=== PATIENT | male | born 1970 | race Two or more races ===

== ENCOUNTER 2016-12-16 12:56 | Outpatient (CLI) | payer MEDICAID | END 2016-12-16 12:57 | disposition home or self-care (01) | DX: I10 Essential (primary) hypertension (principal); E11.8 Type 2 diabetes mellitus with unspecified complications; E78.5 Hyperlipidemia, unspecified ==

== ENCOUNTER 2017-08-22 08:00 | Outpatient (CLI) | payer MEDICAID ==
[2017-08-22 19:35] LABS: CALCIUM 9.3 mg/dL (8.5-10.3); CREATININE 0.8 mg/dL (0.6-1.2); POTASSIUM 3.8 mmol/L (3.5-5.0)
[2017-08-22 20:05] LABS: HEMOGLOBIN A1C 0.58 g/dL
== END 2017-08-22 08:01 | disposition home or self-care (01) ==
LOC: LAB.N 08:00
PROVIDERS: ATTEND Family Medicine
DX: I10 Essential (primary) hypertension (principal); E11.9 Type 2 diabetes mellitus without complications
CPT/HCPCS: 36415; 80048; 83036

== ENCOUNTER 2019-03-24 08:00 | Outpatient (CLI) | payer MEDICAID, OTHER ==
[2019-03-24 12:55] LABS: BASOPHILS % (AUTO) 0.9 %; EOSINOPHILS % (AUTO) 3.1 %; HGB - HEMOGLOBIN 14.7 g/dL (14.0-18.0); LYMPHOCYTES % (AUTO) 41.7 %; MEAN CORPUSCULAR HEMOGLOBIN 30.7 pg (27.0-31.0); MEAN CORPUSCULAR HGB CONC 33.7 g/dL (32.0-36.0); MEAN CORPUSCULAR VOLUME 91.1 fL (80.0-94.0); MEAN PLATELET VOLUME 8.8 fL (7.4-11.4); MONOCYTES % (AUTO) 7.1 %; NEUTROPHILS % (AUTO) 47.2 %; PLT - PLATELET COUNT 263 10^3/uL (130-450); RED BLOOD COUNT 4.78 10^6/uL (4.70-6.10); RED CELL DISTRIBUTION WIDTH 13.8 % (12.0-15.0); WHITE BLOOD COUNT 4.3 x10^3/uL (4.8-10.8)
[2019-03-24 12:56] LABS: ABNORMAL LYMPHS % (MANUAL) 0 %
[2019-03-24 13:13] LABS: BUN - BLOOD UREA NITROGEN 18 mg/dL (6-20); CALCIUM 9.2 mg/dL (8.5-10.3); CARBON DIOXIDE - CO2 29 mmol/L (21-32); CHLORIDE 102 mmol/L (101-111); CHOL/HDL RATIO 4.3 (<5.0); CHOLESTEROL 184 mg/dL; CREATININE 0.8 mg/dL (0.6-1.2); GFR - MDRD 102 (>89); GLUCOSE 149 mg/dL (70-100); HDL CHOLESTEROL 43 mg/dL; LDL CHOLESTEROL,CALCULATED 124 mg/dL; LDL/HDL RATIO 2.9 (<3.6); SODIUM 138 mmol/L (135-145); VLDL CHOLESTEROL 17 mg/dL
[2019-03-24 14:47] LABS: BAND NEUTROPHILS % (MANUAL) 3 %; BASOPHILS % (MANUAL) 1 %; EOSINOPHILS # (MANUAL) 0.2 10^3/uL (0-0.7); LYMPHOCYTES # (MANUAL) 1.6 10^3/uL (1.5-3.5); LYMPHOCYTES % (MANUAL) 11 %; MONOCYTES # (MANUAL) 0.1 10^3/uL (0.0-1.0); NEUTROPHILS # (MANUAL) 2.3 10^3/uL (1.5-6.6); NEUTROPHILS % (MANUAL) 50 %
[2019-03-24 14:48] LABS: DIFFERENTIAL COMMENT MANUAL DIFFERENTIAL
[2019-03-24 15:49] LABS: HB2 TOTAL 15.5 g/dL; HEMOGLOBIN A1C 0.66 g/dL
== END 2019-03-24 23:59 | disposition home or self-care (01) ==
LOC: LAB.N 08:00
PROVIDERS: ATTEND Physician Assistant Medical
DX: E78.5 Hyperlipidemia, unspecified (principal); I10 Essential (primary) hypertension; E11.9 Type 2 diabetes mellitus without complications
CPT/HCPCS: 36415; 80048; 80061; 83036; 83721; 84443; 85025

== ENCOUNTER 2019-04-02 17:50 | Emergency (ER) | payer OTHER ==
[2019-04-02 17:56] VITALS: BP 140/85
[2019-04-02] MEDS ORDERED: TETANUS/DIPHTHERIA/PERTUSSIS 0.5 ML SYRINGE IM ONE (18:07)
[2019-04-02] MEDS ORDERED: BUFFERED LIDOCAINE 10 ML SYRINGE SUBQ STA (18:07)
--- NOTE | 2019-04-02 18:08 | ED Physician Documentation ---
PD HPI UPPER EXT INJURY - Stated complaint Stated Complaint: LT THUMB LAC - Chief complaint Chief Complaint: Laceration - History obtained from History obtained from: Patient - History of Present Illness Location: Left (Left-handed gentleman with unknown tetanus status cut his left thumb at work with a knife accidentally just before noon today.) Review of Systems Constitutional: reports: Reviewed and negative Throat: reports: Reviewed and negative Cardiac: reports: Reviewed and negative PD PAST MEDICAL HISTORY - Allergies Allergies/Adverse Reactions: Allergies Allergy/AdvReac Type Severity Reaction Status Date / Time No Known Drug Allergies Allergy Verified 04/02/19 17:56 PD ED PE NORMAL - Vitals Vital signs reviewed: Yes - General General: Alert and oriented X 3, No acute distress - Extremities Extremities: Other (The left thumb, ulnar side there is a 1 cm laceration at the level of the proximal nailbed but not into the nailbed. Normal neurovascular function distal.) - Neuro Neuro: Alert and oriented X 3, Normal speech Results - Vitals Vitals: Vital Signs - 24 hr 04/02/19 17:53 Temperature 37 C Heart Rate 76 Respiratory 17 Rate Blood Pressure 140/85 H O2 Saturation 97 Oxygen O2 Source Room air Procedures - Laceration (location) L thumb Length in cm: 1 Wound type: Linear Neurovascular status: Sensory intact, Motor intact, Vascular intact Anesthesia: Lidocaine 1%, With bicarb Wound Preparation: Irrigated copiously NS Skin layer closure: Nylon, Interrupted, Size #-0 - enter number (4-0), Sutures - enter # (3) Other: Patient tolerated well, No complications, Neurovascular intact, Tetanus booster given Complexity: Simple Departure - Departure Disposition: 01 Home, Self Care Clinical Impression: Laceration Condition: Good Record reviewed to determine appropriate education?: Yes Instructions: ED Laceration Hand Comments: Come back for any signs of infection which would include: Redness, swelling, drainage, increased pain, or fevers. You can wash it soap and water. Keep it covered and moist with bacitracin ointment which is available over the counter; avoid neosporin. Follow-up with your physician in about 14 days for suture removal. Your blood pressure was elevated today on check into the emergency department. This does not mean that you have hypertension, it is a common phenomenon to come to the emergency department and have elevated blood pressure. I recommend that you see your primary care physician within the week to have it rechecked when you are feeling better.
== END 2019-04-02 18:34 | disposition home or self-care (01) ==
LOC: ED 17:50
DX: S61.012A Laceration without foreign body of left thumb without damage to nail, initial encounter (principal); W26.0XXA Contact with knife, initial encounter; Y99.0 Civilian activity done for income or pay; Z23 Encounter for immunization; R03.0 Elevated blood-pressure reading, without diagnosis of hypertension
CPT/HCPCS: 1040M; 12001; 90471; 90715; 99282

== ENCOUNTER 2020-08-12 09:49 | Outpatient (CLI) | payer SELFPAY ==
[2020-08-12 10:29] LABS: ALBUMIN 4.6 g/dL (3.2-5.5); ALBUMIN/GLOBULIN RATIO 1.4 (1.0-2.2); ALKALINE PHOSPHATASE 59 IU/L (42-121); ALT ALANINE AMINOTRANSFERASE 70 IU/L (10-60); AST ASPARTATE AMINOTRANSFERASE 38 IU/L (10-42); BILIRUBIN,TOTAL 1.2 mg/dL (0.2-1.0); BUN - BLOOD UREA NITROGEN 16 mg/dL (6-20); CALCIUM 9.8 mg/dL (8.5-10.3); CARBON DIOXIDE - CO2 26 mmol/L (21-32); CHLORIDE 98 mmol/L (101-111); CHOL/HDL RATIO 4.8 (<5.0); CHOLESTEROL 223 mg/dL; CREATININE 0.9 mg/dL (0.6-1.2); GLUCOSE 170 mg/dL (70-100); HDL CHOLESTEROL 46 mg/dL; LDL CHOLESTEROL,CALCULATED 152 mg/dL; LDL/HDL RATIO 3.3 (<3.6); SODIUM 138 mmol/L (135-145); VLDL CHOLESTEROL 25 mg/dL
[2020-08-13 09:14] LABS: HEMOGLOBIN A1c% 7.3 % (4.27-6.07)
== END 2020-08-12 09:50 | disposition home or self-care (01) ==
LOC: LAB 09:49
PROVIDERS: ATTEND Physician Assistant Medical
DX: E11.9 Type 2 diabetes mellitus without complications (principal)
CPT/HCPCS: 36415; 80053; 80061; 83036; 83721

== ENCOUNTER 2020-11-06 08:00 | Outpatient (CLI) | payer SELFPAY ==
[2020-11-06 13:27] LABS: CALCIUM 9.6 mg/dL (8.5-10.3); CREATININE 0.9 mg/dL (0.6-1.2)
[2020-11-06 14:53] LABS: HEMOGLOBIN A1c% 5.8 % (4.27-6.07)
== END 2020-11-06 23:59 | disposition home or self-care (01) ==
LOC: LAB.N 08:00
PROVIDERS: ATTEND Physician Assistant Medical
DX: E11.9 Type 2 diabetes mellitus without complications (principal)
CPT/HCPCS: 36415; 80048; 83036

== ENCOUNTER 2021-10-02 08:29 | Outpatient (CLI) | payer OTHER ==
[2021-10-02 12:30] LABS: ALBUMIN 4.7 g/dL (3.2-5.5); ALBUMIN/GLOBULIN RATIO 1.6 (1.0-2.2); ALKALINE PHOSPHATASE 64 IU/L (42-121); ALT ALANINE AMINOTRANSFERASE 43 IU/L (10-60); AST ASPARTATE AMINOTRANSFERASE 24 IU/L (10-42); BILIRUBIN,TOTAL 1.1 mg/dL (0.2-1.0); BUN - BLOOD UREA NITROGEN 19 mg/dL (6-20); CALCIUM 9.7 mg/dL (8.5-10.3); CARBON DIOXIDE - CO2 27 mmol/L (21-32); CHLORIDE 101 mmol/L (101-111); CHOL/HDL RATIO 3.5 (<5.0); CHOLESTEROL 151 mg/dL; CREATININE 0.8 mg/dL (0.6-1.2); GFR - MDRD 101 (>89); GLUCOSE 162 mg/dL (70-100); HDL CHOLESTEROL 43 mg/dL; LDL CHOLESTEROL,CALCULATED 85 mg/dL; POTASSIUM 4.4 mmol/L (3.5-5.0); SODIUM 138 mmol/L (135-145); TOTAL PROTEIN 7.6 g/dL (6.7-8.2); TRIGLYCERIDES 114 mg/dL; VLDL CHOLESTEROL 23 mg/dL
[2021-10-02 12:39] LABS: ESTIMATED AVERAGE GLUCOSE 134 mg/dL (70-100); HEMOGLOBIN A1c% 6.3 % (4.27-6.07)
[2021-10-02 12:40] LABS: THYROID STIMULATING HORMONE 0.88 uIU/mL (0.34-5.60)
[2021-10-02 13:05] LABS: CREATININE,URINE 74.7 mg/dL; MICROALBUMIN,URINE < 0.2 mg/dL (0-300.0)
== END 2021-10-02 08:30 | disposition home or self-care (01) ==
LOC: LAB.N 08:29
PROVIDERS: ATTEND Physician Assistant Medical
DX: E11.9 Type 2 diabetes mellitus without complications (principal)
CPT/HCPCS: 36415; 80053; 80061; 82043; 82570; 83036; 83721; 84443

== ENCOUNTER 2021-12-31 07:36 | Outpatient (CLI) | payer OTHER ==
[2021-12-31 12:39] LABS: ALBUMIN 4.5 g/dL (3.2-5.5); ALBUMIN/GLOBULIN RATIO 1.5 (1.0-2.2); ALKALINE PHOSPHATASE 61 IU/L (42-121); ALT ALANINE AMINOTRANSFERASE 48 IU/L (10-60); AST ASPARTATE AMINOTRANSFERASE 26 IU/L (10-42); BILIRUBIN,TOTAL 0.7 mg/dL (0.2-1.0); BUN - BLOOD UREA NITROGEN 16 mg/dL (6-20); CALCIUM 9.5 mg/dL (8.5-10.3); CARBON DIOXIDE - CO2 28 mmol/L (21-32); CHLORIDE 101 mmol/L (101-111); CHOL/HDL RATIO 2.7 (<5.0); CHOLESTEROL 120 mg/dL; CREATININE 0.8 mg/dL (0.6-1.2); GFR - MDRD 101 (>89); GLUCOSE 169 mg/dL (70-100); HDL CHOLESTEROL 44 mg/dL; LDL CHOLESTEROL,CALCULATED 60 mg/dL; LDL/HDL RATIO 1.4 (<3.6); POTASSIUM 4.5 mmol/L (3.5-5.0); SODIUM 135 mmol/L (135-145); TOTAL PROTEIN 7.6 g/dL (6.7-8.2); TRIGLYCERIDES 78 mg/dL; VLDL CHOLESTEROL 16 mg/dL
[2021-12-31 13:43] LABS: ESTIMATED AVERAGE GLUCOSE 137 mg/dL (70-100); HEMOGLOBIN A1c% 6.4 % (4.27-6.07)
== END 2021-12-31 07:37 | disposition home or self-care (01) ==
LOC: LAB.N 07:36
PROVIDERS: ATTEND Physician Assistant Medical
DX: E78.5 Hyperlipidemia, unspecified (principal); E11.9 Type 2 diabetes mellitus without complications; Z12.5 Encounter for screening for malignant neoplasm of prostate
CPT/HCPCS: 36415; 80053; 80061; 83036; 83721; 84153

== ENCOUNTER 2023-03-06 08:45 | Outpatient (CLI) | payer SELFPAY ==
[2023-03-06 09:16] LABS: ALBUMIN 4.7 g/dL (3.2-5.5); ALBUMIN/GLOBULIN RATIO 1.6 (1.0-2.2); ALKALINE PHOSPHATASE 65 IU/L (42-121); ALT ALANINE AMINOTRANSFERASE 47 IU/L (10-60); AST ASPARTATE AMINOTRANSFERASE 32 IU/L (10-42); BILIRUBIN,TOTAL 0.5 mg/dL (0.2-1.0); BUN - BLOOD UREA NITROGEN 21 mg/dL (6-20); CALCIUM 9.5 mg/dL (8.5-10.3); CARBON DIOXIDE - CO2 28 mmol/L (21-32); CHLORIDE 103 mmol/L (101-111); CHOL/HDL RATIO 2.5 (<5.0); CHOLESTEROL 114 mg/dL; CREATININE 0.8 mg/dL (0.6-1.2); GFR - MDRD 101 (>89); GLUCOSE 163 mg/dL (70-100); HDL CHOLESTEROL 46 mg/dL; LDL CHOLESTEROL,CALCULATED 55 mg/dL; LDL/HDL RATIO 1.2 (<3.6); POTASSIUM 4.7 mmol/L (3.5-5.0); SODIUM 137 mmol/L (135-145); TOTAL PROTEIN 7.7 g/dL (6.7-8.2); TRIGLYCERIDES 67 mg/dL; VLDL CHOLESTEROL 13 mg/dL
[2023-03-06 09:30] LABS: CREATININE,URINE 31.6 mg/dL
[2023-03-06 09:31] LABS: MICROALBUMIN,URINE < 0.2 mg/dL (0-300.0)
[2023-03-06 10:14] LABS: ESTIMATED AVERAGE GLUCOSE 146 mg/dL (70-100); HEMOGLOBIN A1c% 6.7 % (4.27-6.07)
== END 2023-03-06 08:46 | disposition home or self-care (01) ==
LOC: LAB 08:45
PROVIDERS: ATTEND Physician Assistant Medical
DX: E78.5 Hyperlipidemia, unspecified (principal)
CPT/HCPCS: 36415; 80053; 80061; 82043; 82570; 83036; 83721

== ENCOUNTER 2023-05-17 17:57 | Emergency (ER) | payer SELFPAY ==
[2023-05-17] MEDS ORDERED: AMOX/CLAV 875 MG/125 MG TABLET PO STA (18:09)
[2023-05-17] MEDS ORDERED: NEOMYCIN/POLYMYX/HC OTIC DROPS RIGHTEAR STA (18:09)
--- NOTE | 2023-05-17 18:11 | ED Physician Documentation ---
PD HPI HEENT - Stated complaint Stated Complaint: EAR PAIN - Chief complaint Chief Complaint: Heent - History obtained from History obtained from: Patient (Swimming at a water park in [place] about a week ago. Since then he has had fullness in the right ear similar to prior episodes of earwax, he tried flushing without relief.He is a well-controlled type II diabetic.) PD PAST MEDICAL HISTORY - Past Medical History Past Medical History: Yes Cardiovascular: Hypertension Endocrine/Autoimmune: Type 2 diabetes - Past Surgical History Past Surgical History: No - Present Medications Home Medications: Ambulatory Orders Medication Instructions Recorded Confirmed Amlodipine Besylate [Norvasc] 10 mg PO DAILY 05/17/23 05/17/23 Amox/Clav 875/125 [Augmentin] 1 each PO Q12H #20 tablet 05/17/23 Lisinopril [Zestril] 20 mg PO DAILY 05/17/23 05/17/23 Neomycin/Polymyx/Hc Otic Drops 4 drops OT TID #1 each 05/17/23 [Cortisporin Ear Susp] Rosuvastatin Calcium 20 mg PO DAILY 05/17/23 05/17/23 metFORMIN [Glucophage] 500 mg PO ONCE 05/17/23 05/17/23 - Allergies Allergies/Adverse Reactions: Allergies Allergy/AdvReac Type Severity Reaction Status Date / Time No Known Drug Allergies Allergy Verified 04/02/19 17:56 - Social History Does the pt smoke?: No Smoking Status: Never smoker PD ED PE NORMAL - Vitals Vital signs reviewed: Yes - General General: Alert and oriented X 3, No acute distress - HEENT HEENT: Other (Right otitis media with some swelling of the canal as well. Not occlusive. No earwax.) - Neck Neck: Supple, no meningeal sign, No bony TTP - Neuro Neuro: Alert and oriented X 3, Normal speech Results - Vitals Vitals: Vital Signs - 24 hr 05/17/23 18:02 Temperature 36.3 C L Heart Rate 62 Respiratory 20 Rate Blood Pressure 145/76 H O2 Saturation 100 Oxygen O2 Source Room air Departure - Departure Disposition: 01 Home, Self Care Clinical Impression: Right otitis media Condition: Good Record reviewed to determine appropriate education?: Yes Instructions: ED Otitis Media Acute Adult Prescriptions: Amox/Clav 875/125 [Augmentin] 1 each PO Q12H #20 tablet Neomycin/Polymyx/Hc Otic Drops [Cortisporin Ear Susp] 4 drops OT TID #1 each Comments: I sent your prescriptions electronically to [facility] in [place]. Follow-up with your doctor for recheck. Return for new or worsening symptoms.
[2023-05-17 18:36] VITALS: BP 128/69
== END 2023-05-17 18:40 | disposition home or self-care (01) ==
LOC: ED 17:57
DX: H66.91 Otitis media, unspecified, right ear (principal); I10 Essential (primary) hypertension; E11.9 Type 2 diabetes mellitus without complications; Z79.84 Long term (current) use of oral hypoglycemic drugs
CPT/HCPCS: 99282; 99283; A9270

== ENCOUNTER 2023-11-06 17:23 | Emergency (ER) | payer SELFPAY ==
[2023-11-06 17:39] VITALS: BP 156/80; O2SAT 98
[2023-11-06] MEDS ORDERED: PHENAZOPYRIDINE 100 MG TABLET PO STA (17:43)
--- NOTE | 2023-11-06 17:45 | ED Physician Documentation ---
History of Present Illness - Stated complaint Stated Complaint: - Chief complaint Chief Complaint: General - History obtained from History obtained from: Patient - Additonal information Additional information: Last night his son ran into the bathroom while he was peeing and he pinched his penis very hard to stop the stream. After that he had a single episode of hematuria and now it villafuerte when he pees. There is no more hematuria. PD PAST MEDICAL HISTORY - Past Medical History Past Medical History: Yes Cardiovascular: Hypertension Endocrine/Autoimmune: Type 2 diabetes - Past Surgical History Past Surgical History: No - Present Medications Home Medications: Ambulatory Orders Medication Instructions Recorded Confirmed Amlodipine Besylate [Norvasc] 10 mg PO DAILY 05/17/23 05/17/23 Amox/Clav 875/125 [Augmentin] 1 each PO Q12H #20 tablet 05/17/23 Lisinopril [Zestril] 20 mg PO DAILY 05/17/23 05/17/23 Neomycin/Polymyx/Hc Otic Drops 4 drops OT TID #1 each 05/17/23 [Cortisporin Ear Susp] Rosuvastatin Calcium 20 mg PO DAILY 05/17/23 05/17/23 metFORMIN [Glucophage] 500 mg PO ONCE 05/17/23 05/17/23 Phenazopyridine HCl [Pyridium] 200 mg PO TID PRN #6 tablet 11/06/23 - Allergies Allergies/Adverse Reactions: Allergies Allergy/AdvReac Type Severity Reaction Status Date / Time No Known Drug Allergies Allergy Verified 04/02/19 17:56 - Social History Does the pt smoke?: No Smoking Status: Never smoker Does the pt drink ETOH?: Yes ETOH Use: Liquor Does the pt have substance abuse?: No - Immunizations Immunizations are current?: Yes PD ED PE NORMAL - Vitals Vital signs reviewed: Yes - General General: Alert and oriented X 3, No acute distress - Male Male : Other (Circumcised male genitalia without blood at the meatus or other abnormality) - Neuro Neuro: Alert and oriented X 3, Normal speech Results - Vitals Vitals: Vital Signs - 24 hr 11/06/23 11/06/23 17:30 18:02 Temperature 36.7 C Heart Rate 57 L Respiratory 16 17 Rate Blood Pressure 156/80 H O2 Saturation 98 Oxygen O2 Source Room air PD Medical Decision Making - ED course ED course: Sounds like he has a urethral injury, but he is urinating well now and the hematuria has stopped. For now conservative care was advised and presume this will heal on its own. Departure - Departure Disposition: 01 Home, Self Care Clinical Impression: Urethral injury Qualifiers: Encounter type: initial encounter Qualified Code(s): S37.30XA - Unspecified injury of urethra, initial encounter Condition: Good Record reviewed to determine appropriate education?: Yes Follow-Up: Cullen Walton MD [Provider Admit Priv/Credential] - Prescriptions: Phenazopyridine HCl [Pyridium] 200 mg PO TID PRN #6 tablet PRN Reason: dysuria Comments: As discussed, it seems like you have a minor urethral injury from last night. Given the current symptomatology and the fact that you are able to urinate I think it will heal just fine without specific intervention. I am putting on some medication that may help with the burning just for the next couple of days. Return if worse and if not better next week follow-up with our urologist, but my suspicion is it will heal completely and you will not need to follow-up. Forms: PCP List Discharge Date/Time: 11/06/23 18:30
== END 2023-11-06 18:30 | disposition home or self-care (01) ==
LOC: ED 17:23
DX: S37.30XA Unspecified injury of urethra, initial encounter (principal); X58.XXXA Exposure to other specified factors, initial encounter; Y92.89 Other specified places as the place of occurrence of the external cause; I10 Essential (primary) hypertension; E11.9 Type 2 diabetes mellitus without complications; Z79.899 Other long term (current) drug therapy; Z79.84 Long term (current) use of oral hypoglycemic drugs
CPT/HCPCS: 99282; 99283; A9270

== ENCOUNTER 2023-12-22 09:13 | Outpatient (CLI) | payer SELFPAY ==
[2023-12-22 09:27] LABS: BASOPHILS # (AUTO) 0.1 10^3/uL (0.0-0.1); BASOPHILS % (AUTO) 1.5 %; EOSINOPHILS # (AUTO) 0.4 10^3/uL (0.0-0.7); EOSINOPHILS % (AUTO) 5.9 %; HCT - HEMATOCRIT 46.4 % (42.0-52.0); HGB - HEMOGLOBIN 15.3 g/dL (14.0-18.0); LYMPHOCYTES # (AUTO) 2.1 10^3/uL (1.5-3.5); LYMPHOCYTES % (AUTO) 34.9 %; MEAN CORPUSCULAR HEMOGLOBIN 29.9 pg (27.0-31.0); MEAN CORPUSCULAR VOLUME 90.8 fL (80.0-94.0); MEAN PLATELET VOLUME 9.4 fL (7.4-11.4); MONOCYTES # (AUTO) 0.5 10^3/uL (0.0-1.0); MONOCYTES % (AUTO) 7.7 %; NEUTROPHILS % (AUTO) 49.5 %; PLT - PLATELET COUNT 252 10^3/uL (130-450); RED BLOOD COUNT 5.11 10^6/uL (4.70-6.10); RED CELL DISTRIBUTION WIDTH 12.7 % (12.0-15.0); WHITE BLOOD COUNT 6.1 x10^3/uL (4.8-10.8)
[2023-12-22 09:49] LABS: ALBUMIN 4.8 g/dL (3.2-5.5); ALBUMIN/GLOBULIN RATIO 1.6 (1.0-2.2); ALKALINE PHOSPHATASE 73 IU/L (42-121); ALT ALANINE AMINOTRANSFERASE 48 IU/L (10-60); AST ASPARTATE AMINOTRANSFERASE 23 IU/L (10-42); BILIRUBIN,TOTAL 0.6 mg/dL (0.2-1.0); BUN - BLOOD UREA NITROGEN 18 mg/dL (6-20); CALCIUM 9.9 mg/dL (8.5-10.3); CARBON DIOXIDE - CO2 30 mmol/L (21-32); CHLORIDE 101 mmol/L (101-111); CHOL/HDL RATIO 3.4 (<5.0); CHOLESTEROL 134 mg/dL; CREATININE 0.9 mg/dL (0.6-1.3); GFR - MDRD 88 (>89); GLUCOSE 230 mg/dL (74-104); HDL CHOLESTEROL 40 mg/dL; LDL CHOLESTEROL,CALCULATED 73 mg/dL; LDL/HDL RATIO 1.8 (<3.6); POTASSIUM 4.6 mmol/L (3.5-4.5); SODIUM 136 mmol/L (135-145); TOTAL PROTEIN 7.8 g/dL (6.4-8.9); TRIGLYCERIDES 103 mg/dL (48-352); VLDL CHOLESTEROL 21 mg/dL
[2023-12-22 11:36] LABS: ESTIMATED AVERAGE GLUCOSE 177 mg/dL (70-100); HEMOGLOBIN A1c% 7.8 % (4.27-6.07)
== END 2023-12-22 09:14 | disposition home or self-care (01) ==
LOC: LAB 09:13
PROVIDERS: ATTEND Physician Assistant Medical
DX: E78.5 Hyperlipidemia, unspecified (principal); E11.9 Type 2 diabetes mellitus without complications; Z12.5 Encounter for screening for malignant neoplasm of prostate; J45.909 Unspecified asthma, uncomplicated
CPT/HCPCS: 36415; 80053; 80061; 83036; 83721; 84153; 85025

== ENCOUNTER 2024-03-08 10:53 | Outpatient (CLI) | payer BC ==
[2024-03-08 11:28] LABS: ALBUMIN 4.6 g/dL (3.2-5.5); ALBUMIN/GLOBULIN RATIO 1.7 (1.0-2.2); ALKALINE PHOSPHATASE 61 IU/L (42-121); ALT ALANINE AMINOTRANSFERASE 34 IU/L (10-60); AST ASPARTATE AMINOTRANSFERASE 20 IU/L (10-42); BILIRUBIN,TOTAL 0.6 mg/dL (0.2-1.0); BUN - BLOOD UREA NITROGEN 17 mg/dL (6-20); CALCIUM 10.4 mg/dL (8.5-10.3); CARBON DIOXIDE - CO2 29 mmol/L (21-32); CHLORIDE 103 mmol/L (101-111); CHOL/HDL RATIO 2.3 (<5.0); CHOLESTEROL 107 mg/dL; CREATININE 0.8 mg/dL (0.6-1.3); GFR - MDRD 100 (>89); GLUCOSE 155 mg/dL (74-104); HDL CHOLESTEROL 47 mg/dL; LDL CHOLESTEROL,CALCULATED 50 mg/dL; LDL/HDL RATIO 1.1 (<3.6); POTASSIUM 4.6 mmol/L (3.5-4.5); SODIUM 137 mmol/L (135-145); TOTAL PROTEIN 7.3 g/dL (6.4-8.9); TRIGLYCERIDES 52 mg/dL (48-352); VLDL CHOLESTEROL 10 mg/dL
[2024-03-08 11:54] LABS: ESTIMATED AVERAGE GLUCOSE 140 mg/dL (70-100); HEMOGLOBIN A1c% 6.5 % (4.27-6.07)
== END 2024-03-08 10:54 | disposition home or self-care (01) ==
LOC: LAB 10:53
PROVIDERS: ATTEND Physician Assistant Medical
DX: E11.9 Type 2 diabetes mellitus without complications (principal)
CPT/HCPCS: 36415; 80053; 80061; 83036; 83721